=== PATIENT | female | born 1975 | race American Indian/Alaskan Native ===

== ENCOUNTER 2017-01-26 15:59 | Emergency (ER) | payer SELFPAY ==
[2017-01-26 16:36] VITALS: BP 118/62
== END 2017-01-26 18:30 | disposition left against medical advice (07) ==
LOC: ED 15:59
DX: M54.6 Pain in thoracic spine (principal); Z88.0 Allergy status to penicillin; V49.9XXA Car occupant (driver) (passenger) injured in unspecified traffic accident, initial encounter; Y93.89 Activity, other specified; Y99.9 Unspecified external cause status; Y92.410 Unspecified street and highway as the place of occurrence of the external cause; Z53.21 Procedure and treatment not carried out due to patient leaving prior to being seen by health care provider